=== PATIENT | female | born 1990 | race Caucasian/White ===

== ENCOUNTER 2020-06-19 13:22 | Emergency (ER) | payer MEDICAID, OTHER ==
[2020-06-19 14:10] VITALS: BP 125/61
--- NOTE | 2020-06-19 14:26 | ER Document Report ---
ED Medical Screen (RME) - General Chief Complaint: Vaginal Bleeding Stated Complaint: VAGINAL BLEEDING/12 WKS PREG Time Seen by Provider: 06/19/20 14:10 Primary Care Provider: PILY ABDI MD [Primary Care Provider] - Follow up as needed Mode of Arrival: Ambulatory Information source: Patient Notes: Patient is a 29-year-old female comes emergency room complaining of dysfunctional uterine bleeding. Patient states that she is approximately 12 weeks gestation. She discovered she was approximately 7 weeks ago she went to the [facility] where they did do an ultrasound according to patient and had good IUP placement. She states that she started bleeding yesterday and has gone through 3 then many pads today but no clotting. She denies any pain with exception of what she calls normal. Type cramping. Patient states that she did give in 2014 and is 3 para 2 currently denies any nausea or vomiting or weakness. Physical examination: Patient is a well-nourished well-developed 29-year-old female no apparent distress on examination today. Cardiac: Patient displays a regular rate and rhythm at 75 bpm on the monitor and no murmurs auscultated. Blood pressure is 125/61. Lungs: Bilateral breath sounds breath sounds increased clear to auscultation no rhonchi rales or wheeze heard. Abdomen: In the sitting position patient does display bowel sounds in all 4 quads. There is no tenderness to palpation of the abdomen in the sitting position. *I checked patient's blood bank records and she is O- neg ABORH in 2014 I have greeted and performed a rapid initial assessment of this patient. A comprehensive ED assessment and evaluation of the patient, analysis of test results and completion of the medical decision making process will be conducted by additional ED providers. Dictation of this chart was performed using voice recognition software; therefore, there may be some unintended grammatical errors. TRAVEL OUTSIDE OF THE [place] IN LAST 30 DAYS: No - Related Data Allergies/Adverse Reactions: No Known Allergies Allergy (Verified 12/17/14 08:06) Past Medical History Renal/ Medical History: Reports: Hx Ovarian Cysts Psychiatric Medical History: Reports: Hx Depression Past Surgical History: Reports: Hx Gynecologic Surgery - c-sesct - Immunizations Hx Diphtheria, Pertussis, Tetanus Vaccination: Yes Physical Exam - Vital signs Vitals: Temp Pulse Resp BP Pulse Ox 98.1 F 75 16 125/61 100 12/31/20 14:02 06/19/20 14:02 06/19/20 14:02 06/19/20 14:02 06/19/20 14:02 Course - Vital Signs Vital signs: Temp Pulse Resp BP Pulse Ox 98.1 F 75 16 125/61 100 06/19/20 14:02 06/19/20 14:02 06/19/20 14:02 06/19/20 14:02 06/19/20 14:02 Doctor's Discharge - Discharge Referrals: PILY ABDI MD [Primary Care Provider] - Follow up as needed
[2020-06-19 14:59] LABS: APPEARANCE,URINE CLEAR; BILIRUBIN,URINE NEGATIVE (NEGATIVE); COLOR,URINE COLORLESS; GLUCOSE, URINE NEGATIVE (NEGATIVE); KETONES,URINE NEGATIVE (NEGATIVE); URINE SPECIFIC GRAVITY 1.012
[2020-06-19 15:00] LABS: LEUKOCYTE ESTERASE,URINE NEGATIVE (NEGATIVE); NITRITE,URINE NEGATIVE (NEGATIVE); PROTEIN,URINE NEGATIVE (NEGATIVE); UROBILINOGEN,URINE NEGATIVE mg/dL (<2.0)
[2020-06-19 15:11] LABS: ABSOLUTE EOSINOPHILS # (AUTO) 0.1 10^3/uL (0.0-0.6); ABSOLUTE LYMPHOCYTES (AUTO) 1.9 10^3/uL (0.5-4.7); ABSOLUTE MONOCYTES (AUTO) 0.3 10^3/uL (0.1-1.4); ABSOLUTE NEUT (AUTO) 2.7 10^3/uL (1.7-8.2); BASOPHILS % (AUTO) 0.8 % (0-2); EOSINOPHILS % (AUTO) 2.3 % (0-6); HEMATOCRIT 36.4 % (36.0-47.0); HEMOGLOBIN 12.6 g/dL (12.0-15.5); LYMPHOCYTES % (AUTO) 37.5 % (13-45); MEAN CORPUSCULAR HEMOGLOBIN 30.3 pg (27.0-33.4); MEAN CORPUSCULAR HGB CONC 34.7 g/dL (32.0-36.0); MEAN CORPUSCULAR VOLUME 87 fl (80-97); MONOCYTES % (AUTO) 5.5 % (3-13); PLATELET COUNT 178 10^3/uL (150-450); RED BLOOD COUNT 4.17 10^6/uL (3.72-5.28); RED CELL DISTRIBUTION WIDTH 13.4 % (11.5-14.0); SEGMENTED NEUTROPHILS % (AUTO) 53.9 % (42-78); TOTAL CELLS COUNTED % (AUTO) 100 %; WHITE BLOOD COUNT 5.1 10^3/uL (4.0-10.5)
--- NOTE | 2020-06-19 15:21 | RADIOLOGY REPORT (SQ) ---
EXAM DESCRIPTION: U/S 1TRIMESTER/1GEST W/DOPPLER IMAGES COMPLETED DATE/TIME: 06/19/2020 3:06 pm REASON FOR STUDY: 12 weeks gestation bleeding COMPARISON: None. TECHNIQUE: Transabdominal static and realtime grayscale images acquired of the pelvis. Additional se lected spectral and color Doppler images recorded. All images stored on PACs. bHCG: Not applicable. CLINICAL DATES: LMP 03/23/2020 12 weeks 4 days LIMITATIONS: None. FINDINGS: FETUS: Single Living intrauterine . ULTRASOUND EGA: 8 weeks 6 days ULTRASOUND BANDAR: 01/23/2021 EFW: Not applicable less than 20 weeks. CRL: 2.17 cm FHR: No heart motion is seen. SURVEY: No visualized anomalies. AMNIOTIC FLUID: Adequate amount. PLACENTA: Not yet developed due to early gestation. SUBCHORIONIC BLEED: No SIZE OF BLEED: Not applicable. UTERUS: No masses. No anomalies. CERVICAL LENGTH: 3 Closed. RIGHT ADNEXA: Normal ovary with normal vascular flow. 4 x 2 x 2 cm. No adnexal free fluid. No adnexal masses. LEFT ADNEXA: Ovary not seen. No adnexal free fluid. No adnexal masses. FREE FLUID: None. OTHER: No other significant finding. IMPRESSION: No heart motion is seen. There appears to be demise at 8 weeks 6 days gesta tion. TECHNICAL DOCUMENTATION: JOB ID: [id number] 2010 [employer]- All Rights Reserved rev Reading location - IP/workstation name: [email or web address]
[2020-06-19 15:25] LABS: ALBUMIN 3.9 g/dL (3.5-5.0); ALKALINE PHOSPHATASE 39 U/L (38-126); ANION GAP 6 (5-19); ASPARTATE AMINO TRANSFERASE 18 U/L (14-36); BILIRUBIN,TOTAL 0.4 mg/dL (0.2-1.3); BLOOD UREA NITROGEN 6 mg/dL (7-20); CALCIUM 9.4 mg/dL (8.4-10.2); CARBON DIOXIDE 26 mmol/L (22-30); CHLORIDE 105 mmol/L (98-107); GLUCOSE 79 mg/dL (75-110); POTASSIUM 4.5 mmol/L (3.6-5.0); TOTAL PROTEIN 6.7 g/dL (6.3-8.2)
== END 2020-06-19 16:49 | disposition left against medical advice (07) ==
LOC: ER 13:22
DX: O46.90 Antepartum hemorrhage, unspecified, unspecified trimester (principal); Z3A.00 Weeks of gestation of pregnancy not specified
CPT/HCPCS: 36415; 76801; 80053; 81001; 84702; 85025; 87086; 93976; 99281

== ENCOUNTER 2020-06-19 20:03 | Emergency (ER) | payer MEDICAID ==
--- NOTE | 2020-06-19 20:07 | ER Document Report ---
ED GI/ - General Stated Complaint: VAGINAL BLEED Time Seen by Provider: 06/19/20 20:06 Primary Care Provider: PILY ABDI MD [Primary Care Provider] - Follow up as needed ISABEL BRITT MD [ACTIVE STAFF] - Follow up as needed Mode of Arrival: Ambulatory Information source: Patient Notes: I originally saw patient in triage and ordered her testing. I also looked her up in the blood bank to find out that she is O- on her Rh ABO Rh factor. It was brought to my attention by the stock or delivery clerk upfront the patient had been here over 5 or 6 hours had not gotten to the back to see another provider and that she was wanting to leave but requested that we print off a ultrasound report for her. I did look at patient's ultrasound and labs and the ultrasound in essence stated that there is no heart motion seen. There appears to be demise at 8 weeks 6 days gestation. I went out and talked to the patient and convinced her to stay for a RhoGam shot. I explained to her the reasoning behind this and patient is willing to stay but she is to be rechecked back in because it was in her other chart that she eloped. Here is the original complaint by patient on my triage note. Patient is a 29-year-old female comes emergency room complaining of dysfunctional uterine bleeding. Patient states that she is approximately 12 weeks gestation. She discovered she was approximately 7 weeks ago she went to the [facility] where they did do an ultrasound according to patient and had good IUP placement. She states that she started bleeding yesterday and has gone through 3 then many pads today but no clotting. She denies any pain with exception of what she calls normal. Type cramping. Patient states that she did give in 2014 and is 3 para 2 currently denies any nausea or vomiting or weakness. TRAVEL OUTSIDE OF THE [place] IN LAST 30 DAYS: No - HPI Patient complains to provider of: Abdominal pain, Vaginal bleeding Onset: Yesterday Timing/Duration: Constant Quality of pain: Achy, Cramping Severity at maximum: Moderate Severity in ED: Moderate Pain Level: 3 Location: Pelvis Vaginal bleeding (Compared to normal period): Similar. denies: Passing clots Menstrual period history: Abnormal, Sexual history: Active Associated symptoms: Hematuria Exacerbated by: Denies Relieved by: Denies Similar symptoms previously: No Recently seen / treated by doctor: No - Related Data Allergies/Adverse Reactions: No Known Allergies Allergy (Verified 12/17/14 08:06) Past Medical History - General Information source: Patient - Social History Smoking Status: Never Smoker Cigarette use (# per day): No Chew tobacco use (# tins/day): No Smoking Education Provided: No Frequency of alcohol use: None Drug Abuse: None Lives with: Family Family History: Reviewed & Not Pertinent Renal/ Medical History: Reports: Hx Ovarian Cysts Psychiatric Medical History: Reports: Hx Depression Past Surgical History: Reports: Hx Gynecologic Surgery - c-sesct - Immunizations Hx Diphtheria, Pertussis, Tetanus Vaccination: Yes Review of Systems - Review of Systems Constitutional: No symptoms reported EENT: No symptoms reported Cardiovascular: No symptoms reported Respiratory: No symptoms reported Gastrointestinal: No symptoms reported Genitourinary: No symptoms reported Female Genitourinary: See HPI, Vaginal bleeding Musculoskeletal: No symptoms reported Skin: No symptoms reported Hematologic/Lymphatic: No symptoms reported Neurological/Psychological: No symptoms reported -: Yes All other systems reviewed and negative Physical Exam - Vital signs Vitals: Temp Pulse Resp BP Pulse Ox 98.2 F 72 20 117/63 100 06/19/20 20:11 06/19/20 20:11 06/19/20 20:11 06/19/20 20:11 06/19/20 20:11 Interpretation: Other - Patient's vital signs have not captured. She has a temp of 98.1, heart rate 75 bpm, blood pressure 125/61, respiratory rate of 16, and a saturation 100% on room air. Notes: PHYSICAL EXAMINATION: GENERAL: Patient is a well-nourished well-developed 29-year-old female no apparent distress but appears uncomfortable. NECK: Normal range of motion, supple without lymphadenopathy LUNGS: Breath sounds clear to auscultation bilaterally and equal. No wheezes rales or rhonchi. HEART: Regular rate and rhythm without murmurs ABDOMEN: Examination patient's abdomen shows bowel sounds to be present all 4 quads. There is some mild suprapubic tenderness to palpation. No other discomfort is palpated in a sitting position. Female : deferred patient had an ultrasound that showed demise and therefore does not want a pelvic examination currently. She will follow-up with [facility]. Musculoskeletal: Normal range of motion, no pitting or edema. No cyanosis. NEUROLOGICAL: Normal speech, normal gait. Normal sensory, motor exams PSYCH: Normal mood, normal affect. SKIN: Warm, Dry, normal turgor, no rashes or lesions noted. - Notes Notes: PHYSICAL EXAMINATION: GENERAL: Patient is well-nourished well-developed 29-year-old female no apparent distress on examination. HEAD: Atraumatic, normocephalic. EYES: Pupils equal round and reactive to light, extraocular movements intact, conjunctiva are normal. ENT: Nares patent, oropharynx clear without exudates. Moist mucous membranes. NECK: Normal range of motion, supple without lymphadenopathy LUNGS: Breath sounds clear to auscultation bilaterally and equal. No wheezes rales or rhonchi. HEART: Regular rate and rhythm without murmurs ABDOMEN: Abdomen is soft nontender to palpation there is some tenderness in the suprapubic region to deep palpation. Bowel sounds are present all 4 quads. Female : deferred. Patient did not want to have a pelvic exam given the findings of her ultrasound. Musculoskeletal: Normal range of motion, no pitting or edema. No cyanosis. NEUROLOGICAL: Normal speech, normal gait. Normal sensory, motor exams PSYCH: Normal mood, normal affect. SKIN: Warm, Dry, normal turgor, no rashes or lesions noted Course - Re-evaluation Re-evalutation: 06/19/20 20:15 As stated in the H&P I originally saw patient in triage ordered all the labs for her and looked her up in the blood bank and found out she was O-. Her ultrasound came back showing a demise and patient had already signed out or eloped because of her long wait.. I had convinced her to sign back in so that I could give her the RhoGam which she has done. We are going to give patient the injection she can be discharged home. I had a 15-minute conversation with patient gave her a copy of her ultrasound report and expressed on her how important it is that she follow-up with [facility]. 06/19/20 21:13 Patient did wait and have the ABO Rh panel done. I was contacted and informed that this ABO Rh panel did come back as an O+ not all negative. I misread the original report and was happy that the tech made me rerun it. I have sat down to talk to patient and apologized to her for missed reading it but rather be cautious then overzealous in getting things done. Patient was okay with this situation and she will follow-up with [facility] on Tuesday. - Vital Signs Vital signs: Temp Pulse Resp BP Pulse Ox 98.2 F 72 20 117/63 100 06/19/20 20:11 06/19/20 20:11 06/19/20 20:11 06/19/20 20:11 06/19/20 20:11 - Laboratory Results Critical Laboratory Results Reviewed: No Critical Results - Radiology Results Critical Radiology Results Reviewed: Yes Attending or Supervising Physician who Reviewed Radiology: JOSE LUIS PEÑA - demise Discharge - Discharge Clinical Impression: Threatened miscarriage in early Condition: Stable Disposition: HOME, SELF-CARE Instructions: Bleeding During Early ([facility]), Threatened Miscarriage ([facility]) Additional Instructions: Home and rest. Has recent discussed that you are all positive not O- blood and you still need to follow-up [facility] however if you do have any hemorrhage or excessive bleeding or pain you need to return to ER for reevaluation before you see them. Referrals: PILY ABDI MD [Primary Care Provider] - Follow up as needed ISABEL BRITT MD [ACTIVE STAFF] - Follow up as needed
[2020-06-19 20:12] VITALS: BP 117/63
== END 2020-06-19 22:17 | disposition home or self-care (01) ==
LOC: ER 20:03
DX: O20.0 Threatened abortion (principal); O26.899 Other specified pregnancy related conditions, unspecified trimester; R10.2 Pelvic and perineal pain; R31.9 Hematuria, unspecified; Z3A.00 Weeks of gestation of pregnancy not specified
CPT/HCPCS: 36415; 86900; 86901; 99283

== ENCOUNTER 2020-06-25 00:21 | Emergency (ER) | payer MEDICAID ==
[2020-06-25 01:02] LABS: ABSOLUTE BASOPHILS # (AUTO) 0.1 10^3/uL (0.0-0.2); ABSOLUTE EOSINOPHILS # (AUTO) 0.1 10^3/uL (0.0-0.6); ABSOLUTE MONOCYTES (AUTO) 0.5 10^3/uL (0.1-1.4); ABSOLUTE NEUT (AUTO) 6.8 10^3/uL (1.7-8.2); BASOPHILS % (AUTO) 0.6 % (0-2); EOSINOPHILS % (AUTO) 1.4 % (0-6); HEMATOCRIT 34.2 % (36.0-47.0); HEMOGLOBIN 11.7 g/dL (12.0-15.5); MEAN CORPUSCULAR HEMOGLOBIN 30.1 pg (27.0-33.4); MEAN CORPUSCULAR HGB CONC 34.2 g/dL (32.0-36.0); MEAN CORPUSCULAR VOLUME 88 fl (80-97); PLATELET COUNT 189 10^3/uL (150-450); RED BLOOD COUNT 3.89 10^6/uL (3.72-5.28); RED CELL DISTRIBUTION WIDTH 13.8 % (11.5-14.0); TOTAL CELLS COUNTED % (AUTO) 100 %; WHITE BLOOD COUNT 9.4 10^3/uL (4.0-10.5)
[2020-06-25 01:50] LABS: APPEARANCE,URINE SLIGHTLY-CLOUDY; BILIRUBIN,URINE NEGATIVE (NEGATIVE); CALCIUM OXALATE CRYSTALS,URINE MANY /HPF; COLOR,URINE YELLOW; GLUCOSE, URINE NEGATIVE (NEGATIVE); KETONES,URINE NEGATIVE (NEGATIVE); LEUKOCYTE ESTERASE,URINE NEGATIVE (NEGATIVE); NITRITE,URINE NEGATIVE (NEGATIVE); PROTEIN,URINE 100 mg/dL (NEGATIVE); URINE SPECIFIC GRAVITY 1.006; UROBILINOGEN,URINE NEGATIVE mg/dL (<2.0)
[2020-06-25] MEDS: RINGERS SOLUTION,LACTATED 1,000 ML IV PRN ×4 (02:00→06:23)
[2020-06-25 02:04] LABS: ALBUMIN 3.4 g/dL (3.5-5.0); ALKALINE PHOSPHATASE 35 U/L (38-126); ANION GAP 6 (5-19); ASPARTATE AMINO TRANSFERASE 17 U/L (14-36); BILIRUBIN,DIRECT 0.2 mg/dL (0.0-0.4); BILIRUBIN,TOTAL 0.4 mg/dL (0.2-1.3); BLOOD UREA NITROGEN 10 mg/dL (7-20); CALCIUM 8.6 mg/dL (8.4-10.2); CARBON DIOXIDE 23 mmol/L (22-30); CHLORIDE 109 mmol/L (98-107); GLUCOSE 109 mg/dL (75-110); POTASSIUM 3.8 mmol/L (3.6-5.0); TOTAL PROTEIN 6.1 g/dL (6.3-8.2)
[2020-06-25 02:39] LABS: ABSOLUTE BASOPHILS # (AUTO) 0.1 10^3/uL (0.0-0.2); ABSOLUTE EOSINOPHILS # (AUTO) 0.1 10^3/uL (0.0-0.6); ABSOLUTE LYMPHOCYTES (AUTO) 2.6 10^3/uL (0.5-4.7); ABSOLUTE MONOCYTES (AUTO) 0.9 10^3/uL (0.1-1.4); ABSOLUTE NEUT (AUTO) 12.4 10^3/uL (1.7-8.2); BASOPHILS % (AUTO) 0.5 % (0-2); EOSINOPHILS % (AUTO) 0.6 % (0-6); HEMATOCRIT 32.6 % (36.0-47.0); LYMPHOCYTES % (AUTO) 15.9 % (13-45); MEAN CORPUSCULAR HEMOGLOBIN 29.9 pg (27.0-33.4); MEAN CORPUSCULAR HGB CONC 33.9 g/dL (32.0-36.0); MEAN CORPUSCULAR VOLUME 88 fl (80-97); MONOCYTES % (AUTO) 5.3 % (3-13); PLATELET COUNT 255 10^3/uL (150-450); RED CELL DISTRIBUTION WIDTH 13.4 % (11.5-14.0); SEGMENTED NEUTROPHILS % (AUTO) 77.7 % (42-78); TOTAL CELLS COUNTED % (AUTO) 100 %
--- NOTE | 2020-06-25 02:41 | ER Document Report ---
ED GI/ - General Chief Complaint: Vaginal Bleeding Stated Complaint: POSSIBLE MISCARRIAGE Time Seen by Provider: 06/25/20 01:30 Primary Care Provider: PILY ABDI MD [Primary Care Provider] - 06/25/20 Mode of Arrival: Wheelchair Information source: Patient Notes: 29-year-old female presented to ED for complaint of miscarrying. She states she was seen here recently and then [facility] up with [facility]. They put her on Misiprostol. She states she took the dose about 1 hour before coming in here and within an hour she had soaked 5 pads and was having severe cramping. When EMS got her house her blood pressure was 66/44 and a pulse of 130 I gave 500 mg of LR and the blood pressure came back up to 110 with a heart rate of 70. First examined the patient she was stable she was alert oriented respirations regular nonlabored but she stated she was having severe cramps and passing a lot of blood. She did get up to go to the bathroom and passed multiple large clots and her blood pressure did drop again. Added 2 L of lactated Ringer's. Blood pressure came back up to 100/60. I completed the pelvic exam in the presence of the RN. She did pass the fetus while speculum was in place. She did pass a lot of clots and blood at the same time. She states she felt much better afterwards but then when we sit the head of the bed up her blood pressure dropped again. She is getting the 2 L of Ringer's. Type and screen and a repeat CBC were sent. Ultrasound is on the way to do a transabdominal ultrasound. Constitutional: Negative for fever. HENT: Negative for sore throat. Eyes: Negative for visual changes. Cardiovascular: Negative for chest pain. Respiratory: Negative for shortness of breath. Gastrointestinal: Complains of severe pelvic cramping passing a large amount of blood after taking Misoprostol to complete a miscarriage. She called EMS she states because she was afraid she was hemorrhaging because of the amount of blood she had had so fast. HPI Genitourinary: Significant vaginal bleeding passing large clots during process of passing miscarriage. Musculoskeletal: Negative for back pain. Skin: Negative for rash. Neurological: Negative for headaches, weakness or numbness. 10 point ROS negative except as marked above and in HPI. VITAL SIGNS: Hypotensive GENERAL: No acute distress, non-toxic appearance. CHEST: Clear breath sounds bilaterally. No wheezes, rales, or rhonchi. CARDIAC: Hypotensive but pulse remained normal VASCULAR: No Edema. Peripheral pulses normal and equal in all extremities. ABDOMEN: Abdomen soft but very tender to the lower abdomen pelvic area GASTROINTESTINAL: Bowel sounds normal GENITOURINARY: Pelvic exam shows large amount of vaginal bleeding with large clots. She did pass the fetus during the exam. Continued to have bleeding but much less after the fetus than before passage. LYMPATHTIC: No lymphadenopathy noted. MUSCULOSKELETAL: Good range of motion of all major joints. Extremities without clubbing, cyanosis or edema. NEUROLOGICAL: Alert and oriented x 3. No focal sensory or strength deficits. Speech normal. Follows commands appropriately. PSYCHIATRIC: Normal Affect, judgement and mood. SKIN: Normal appearance with no rashes or lesions. TRAVEL OUTSIDE OF THE [place] IN LAST 30 DAYS: No - HPI Patient complains to provider of: Other - Source of a miscarriage vaginal bleeding pelvic pain Onset: Just prior to arrival Timing/Duration: Persistent Quality of pain: Cramping Severity at maximum: Moderate Severity in ED: Moderate Pain Level: 3 Vaginal bleeding (Compared to normal period): Heavier, Passing clots, Passing tissue LMP: In the process of miscarriage now : 3 Para: 2 OB ultrasound done: Yes Exacerbated by: Denies Relieved by: Denies Similar symptoms previously: Yes Recently seen / treated by doctor: Yes - Related Data Allergies/Adverse Reactions: No Known Allergies Allergy (Verified 12/17/14 08:06) Home Medications: misoprostal Past Medical History - General Information source: Patient - Social History Smoking Status: Never Smoker Frequency of alcohol use: None Drug Abuse: None Lives with: Family Family History: Reviewed & Not Pertinent Patient has suicidal ideation: No Patient has homicidal ideation: No - Past Medical History Cardiac Medical History: Reports: None Pulmonary Medical History: Reports: None EENT Medical History: Reports: None Neurological Medical History: Reports: None Endocrine Medical History: Reports: None Renal/ Medical History: Reports: Hx Ovarian Cysts Malignancy Medical History: Reports: None GI Medical History: Reports: None Musculoskeletal Medical History: Reports None Skin Medical History: Reports None Psychiatric Medical History: Reports: None, Hx Depression Traumatic Medical History: Reports: None Infectious Medical History: Reports: None Past Surgical History: Reports: Hx Section - 2 - Immunizations Hx Diphtheria, Pertussis, Tetanus Vaccination: Yes Physical Exam - Vital signs Vitals: Resp Pulse Ox 23 H 100 06/25/20 00:22 06/25/20 00:22 Course - Re-evaluation Re-evalutation: 06/25/20 09:04 Dr. Wild was kept informed of this patient's progress throughout the night. She did have a pelvic exam during which she did pass the fetus. She was having a large amount of blood clots. Blood pressure was dropping down we did keep her on the monitor throughout. She did throughout the night give 4 L of fluid to maintain blood pressure. I did speak with Dr. Davis at 520 in the morning as her blood pressure was dropping again. He stated that she would need a repeat CBC and give some more fluids. That is when the second 2 L of fluids were ordered and third CBC was drawn. When the third CBC came back at 9.[address] Davis again and he stated she could follow-up in the office today after she got her 4 L of fluids and if her blood pressure was still stable. Her blood pressure was over 100 at time of discharge. She stated she was: Follow-up with [facility] today as instructed. Her vaginal bleeding was down to less than a menstrual cycle and was no longer passing any clots. She was no longer lightheaded when she stood up. And she stated she was feeling much better than earlier in the night. - Vital Signs Vital signs: Temp Pulse Resp BP Pulse Ox 98.5 F 66 19 91/49 L 100 06/25/20 06:12 06/25/20 04:46 06/25/20 08:01 06/25/20 08:01 06/25/20 08:01 - Laboratory Results Result Diagrams: 06/25/20 05:23 06/25/20 00:31 Laboratory Results Interpreted: 06/25/20 06/25/20 06/25/20 00:31 00:31 01:08 WBC RBC Hgb 11.7 L Hct 34.2 L Plt Count Absolute Neuts (auto) Seg Neutrophils % Chloride 109 H Alkaline Phosphatase 35 L Total Protein 6.1 L Albumin 3.4 L Beta HCG, Quant 271.32 H Urine Protein 100 H Urine Blood LARGE H 06/25/20 06/25/20 02:30 05:23 WBC 16.0 H RBC 3.70 L 3.16 L Hgb 11.0 L 9.5 L Hct 32.6 L 27.8 L Plt Count 143 L Absolute Neuts (auto) 12.4 H Seg Neutrophils % 79.9 H Chloride Alkaline Phosphatase Total Protein Albumin Beta HCG, Quant Urine Protein Urine Blood Critical Laboratory Results Reviewed: No Critical Results - Radiology Results Critical Radiology Results Reviewed: No Critical Results Discharge - Discharge Clinical Impression: Complete miscarriage Hypertension Qualifiers: Hypertension type: unspecified Qualified Code(s): I10 - Essential (primary) hypertension Condition: Stable Disposition: HOME, SELF-CARE Additional Instructions: Miscarriage You have had a miscarriage (medically called a "spontaneous "). The miscarriage occurred because the fetus did not develop normally. There is nothing you did to cause it, and nothing you could have done to prevent it. About one in four ends in miscarriage. You should rest in bed for two or three days. As there is some risk of infection of the uterus, you should not have intercourse for one week (or until okayed by your physician). You might not have a period for six to eight weeks. You should not become again for at least three months -- the uterus requires time to get back to normal. Call the doctor or return for re-examination if there is heavy or persistent vaginal bleeding, fever, foul discharge, continued cramping pains, or abdominal pain. Hypotension Your blood pressure is low. Low blood pressure can make you feel weak, lightheaded, and even make you pass out. Low blood pressure can be caused by dehydration or blood loss. Problems with the heart, kidneys, or blood vessels can cause hypotension. Certain medications can make your blood pressure abnormally low. Infection can lower blood pressure. In many cases, the person is totally healthy, but for unknown reasons, the blood pressure falls when they stand up. This is called benign orthostatic hypotension. The treatment of low blood pressure depends on the severity of the symptoms, and on the underlying cause. Sometimes it's not possible to identify a cause. At this time, it doesn't appear that the problem is serious enough to require hospitalization. Medicines that could be contributing to the problem can be withheld or reduced in dosage if your doctor approves. Get plenty of fluids. Eat a healthy diet. Be careful to stand up slowly. If you feel suddenly lightheaded or if your vision goes taylor, sit or lie down at once. Don't drive or operate machinery until the symptoms are under control. Return or call the doctor if you develop fainting or severe dizziness, severe weakness, problems with vision, chest pain, shortness of breath, fever, or confusion. Ibuprofen Ibuprofen is an excellent, safe drug for pain control. In addition, it has potent antiinflammatory effects which are beneficial, especially in the angelita atment of injuries, arthritis, or tendonitis. It's best to take ibuprofen with food. Persons with ulcer disease or allergy to aspirin should notify their physician of this before taking ibuprofen. Take the medication exactly as prescribed. Don't take additional doses unless instructed to do so by your doctor. If you develop wheezing, shortness of breath, hives, faintness, stomach pain, vomiting, or dark black stools, return for re-evaluation at once. FOLLOW-UP CARE: If you have been referred to a physician for follow-up care, call the physicians office for an appointment as you were instructed or within the next two days. If you experience worsening or a significant change in your symptoms (very heavy bleeding with large clots of blood, passage of tissue, more severe abdominal / pelvic pain or cramping, feeling faint or severe weakness, fever, etc.), notify the physician immediately or return to the Emergency Department at any time for re-evaluation. [facility]STETR[facility]GYNECOLOGIC ([facility] CL[facility]) [facility]YSICIANS IN [place]: [facility] [address] [place] [address] [phone] Referrals: PILY ABDI MD [Primary Care Provider] - 06/25/20
--- NOTE | 2020-06-25 04:50 | RADIOLOGY REPORT (SQ) ---
Ultrasound of the pelvis: 06/25/2020 3:48 AM ADMITTING REPRESENTATIVE HISTORY: 29-year-old patient with miscarriage, vaginal bleeding. TECHNIQUE: Multiple grayscale and color Doppler images of the pelvis were obtained transabdominally and transvaginally. COMPARISON: Pelvic ultrasound from 06/19/2020 FINDINGS: The uterus measures 9.8 x 5.5 x 5.1 cm. The endometrium measures 24-25 mm in thickness. There is some increased peripheral vascularity present around the endometrium. No intrauterine gestational sac is seen. The cervix measures at least 2.9 cm in length. No myometrial mass is seen. The right ovary measures 3.0 x 2.3 x 2.1 cm. The left ovary measures 3.6 x 1.5 x 2.1 cm. Normal arterial waveforms were obtained from both ovaries. Trace free fluid is seen in the cul-de-sac. IMPRESSION: The endometrium is thickened with some mildly increased vascularity within the endometrium. This may represent a failed intrauterine. Close interval follow-up is recommended to exclude retained products of conception.
[2020-06-25 05:46] LABS: ABSOLUTE LYMPHOCYTES (AUTO) 1.3 10^3/uL (0.5-4.7); ABSOLUTE MONOCYTES (AUTO) 0.3 10^3/uL (0.1-1.4); ABSOLUTE NEUT (AUTO) 6.6 10^3/uL (1.7-8.2); BASOPHILS % (AUTO) 0.6 % (0-2); EOSINOPHILS % (AUTO) 0.3 % (0-6); HEMATOCRIT 27.8 % (36.0-47.0); HEMOGLOBIN 9.5 g/dL (12.0-15.5); MEAN CORPUSCULAR HEMOGLOBIN 29.9 pg (27.0-33.4); MEAN CORPUSCULAR VOLUME 88 fl (80-97); MONOCYTES % (AUTO) 3.2 % (3-13); PLATELET COUNT 143 10^3/uL (150-450); RED BLOOD COUNT 3.16 10^6/uL (3.72-5.28); RED CELL DISTRIBUTION WIDTH 13.4 % (11.5-14.0); SEGMENTED NEUTROPHILS % (AUTO) 79.9 % (42-78); TOTAL CELLS COUNTED % (AUTO) 100 %; WHITE BLOOD COUNT 8.3 10^3/uL (4.0-10.5)
[2020-06-25 08:16] VITALS: BP 91/49
== END 2020-06-25 08:30 | disposition home or self-care (01) ==
LOC: ER 00:21
DX: O03.9 Complete or unspecified spontaneous abortion without complication (principal); I10 Essential (primary) hypertension
CPT/HCPCS: 99285; 96360; 96361; 86900; 86901; 36415; 86850; 84702; 85025; 80053; 81001; 76817; 93976; J7120